=== PATIENT | female | born 1955 | race Caucasian/White ===

== ENCOUNTER 2019-01-07 21:17 | Emergency (ER) | payer BC ==
[2019-01-07] MEDS ORDERED: Diphtheria,Pertussis(Acell),Tetanus Vaccine 0.5 ML SDV IM ONE (22:23)
--- NOTE | 2019-01-07 22:23 | EDM.PDOC ---
ED HPI GENERAL MEDICAL PROBLEM - General Chief Complaint: Laceration Stated Complaint: LEFT FOOT PAIN,SWELLING, FALL Time Seen by Provider: 01/07/19 22:23 Source of Information: Reports: Patient History Limitations: Reports: No Limitations - History of Present Illness INITIAL COMMENTS - FREE TEXT/NARRATIVE: pt arrived with swelling and pain of the lateral portion of the rt foot. She was walking accross the [facility] today and she slipped. She has a small laceration which is more of a abrasion The foot is quit e swollen. Onset: Today, Other (pt fell at the [facility]. 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: Dressing(s) left foot Pain Score (Numeric/FACES): 7 - Related Data Allergies Allergy/AdvReac Type Severity Reaction Status Date / Time No Known Allergies Allergy Verified 01/07/19 21:53 Home Meds: Home Meds Propranolol [Inderal] 10 mg PO BID 01/07/19 [History] Sertraline HCl [Zoloft] 50 mg PO DAILY 01/07/19 [History] buPROPion [Wellbutrin] 100 mg PO DAILY 01/07/19 [History] Past Medical History HEENT History: Reports: Impaired Vision [employer] 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: Neurological History: Reports: Headaches, Chronic Psychiatric History: Reports: Anxiety, Depression - Infectious Disease History Infectious Disease History: Reports: Chicken Pox, Shingles - Past Surgical History HEENT Surgical History: Reports: Tonsillectomy Female Surgical History: Reports: Tubal Ligation Social & Family History - Tobacco Use Smoking Status *Q: Never Smoker - Caffeine Use Caffeine Use: Reports: Tea - Recreational Drug Use Recreational Drug Use: No ED ROS GENERAL - Review of Systems Review Of Systems: See Below Constitutional: Reports: No Symptoms HEENT: Reports: No Symptoms Respiratory: Reports: No Symptoms Cardiovascular: Reports: No Symptoms Endocrine: Reports: No Symptoms GI/Abdominal: Reports: No Symptoms : Reports: No Symptoms Musculoskeletal: Reports: Other ( swollen painful left foot. ) ED EXAM, SKIN/RASH Exam: See Below Text/Narrative:: pt was up at [facility] walking accross the [place] and she slipped and has a small abrasion present She has alot of swelling on the lateral portion of the left foot. Exam Limited By: No Limitations General Appearance: Alert, Anxious Extremities: Other ( left foot is swollen laterally and she has a 1/8 inch abrasion on the lateral portion of the foot. ) Neurological: Alert, Oriented, Normal Cognition Course - Vital Signs Last Recorded V/S: Last Vital Signs Temp 36.4 C 01/07/19 21:49 Pulse 83 01/07/19 21:49 Resp 18 01/07/19 21:49 BP 156/89 H 01/07/19 21:49 Pulse Ox 97 01/07/19 21:49 - Orders/Labs/Meds Orders: Active Orders 24 hr Category Date Time Status Vaccines to be Administered [RC] PER UNIT ROUTINE Care 01/07/19 22:23 Active Foot Comp Min 3V Lt [CR] Stat Exams 01/07/19 22:20 Taken Meds: Medications Discontinued Medications Generic Name Dose Route Start Last Admin Trade Name Freq PRN Reason Stop Dose Admin Bacitracin 1 dose 01/07/19 22:49 Bacitracin Oint 1 Gm TOP 01/07/19 22:50 ONETIME ONE Diphtheria/Tetanus/Acell Pertussis 0.5 ml 01/07/19 22:23 01/07/19 22:47 Adacel IM 01/07/19 22:24 0.5 ml .ONCE ONE Administration - Re-Assessments/Exams Free Text/Narrative Re-Assessment/Exam: 01/07/19 22:54 xray of the foot did not reveal any fractures. Departure - Departure Time of Disposition: 22:55 Disposition: Home, Self-Care 01 Condition: Fair Clinical Impression: Contusion of left foot, Abrasion of left foot - Discharge Information Instructions: Laceration Care, Adult, [id number] Referrals: PCP,None [Primary Care Provider] - Forms: ED Department Discharge Care Plan Goals: dress wound with bactracin, soak foot daily, elevate and cool pack. Avoid alot of weight bearing. - My Orders Last 24 Hours: My Active Orders 01/07/19 22:20 Foot Comp Min 3V Lt [CR] Stat 01/07/19 22:23 Vaccines to be Administered [RC] PER UNIT ROUTINE - Assessment/Plan Last 24 Hours: My Active Orders 01/07/19 22:20 Foot Comp Min 3V Lt [CR] Stat 01/07/19 22:23 Vaccines to be Administered [RC] PER UNIT ROUTINE
[2019-01-07] MEDS ORDERED: Bacitracin Oint 1 GM U/D Packet TOP ONE (22:49)
--- NOTE | 2019-01-07 22:58 | CRLCR ---
INDICATION: Contusion TECHNIQUE: Three views left foot COMPARISON: None FINDINGS: Bones: Alignment is normal. No fractures or bone lesions. Joint spaces: Narrowing degenerative changes MTP joint great toe. Soft tissues: Unremarkable. IMPRESSION: Negative. Dictated by Manuel Bryan MD @ 01/07/2019 10:56:10 PM Dictated by: Manuel Bryan MD @ 01/07/2019 22:56:17 (Electronically Signed)
== END 2019-01-07 23:10 | disposition home or self-care (01) ==
LOC: JP.ED 21:17
DX: S90.32XA Contusion of left foot, initial encounter (principal); F32.9 Major depressive disorder, single episode, unspecified; Z23 Encounter for immunization; Z79.899 Other long term (current) drug therapy; W01.10XA Fall on same level from slipping, tripping and stumbling with subsequent striking against unspecified object, initial encounter
CPT/HCPCS: 73630-LT; 90471; 90715; 99283-25